=== PATIENT | female | born 1960 | race Caucasian/White ===

== ENCOUNTER → 2019-08-06 | Outpatient (CLI) | payer BC ==
[~2019-08-06] MED LIST: ALBU90OI INH; CETI5 PO; DIPH25 PO; FLUSAL115; VERA240ER PO
== END | disposition home or self-care (01) ==
LOC: LAB 18:09 → LAB SHORT 18:09
DX: R10.32 Left lower quadrant pain (principal)
CPT/HCPCS: 87086

== ENCOUNTER → 2022-05-25 | Outpatient (CLI) | payer SELFPAY | LOC: LAB SHORT 10:50 → LAB 10:50 → EDSTATUS 05-25 10:50 → LAB FUT 05-25 10:50 | DX: R30.0 Dysuria (principal) | CPT/HCPCS: 87077; 87086; 87186 ==

== ENCOUNTER → 2024-09-11 | Outpatient (CLI) | payer OTHER ==
[2024-09-17 08:54] LABS: HPV HIGH RISK BY TMA Not Detected; HPV SOURCE Cervical
== END ==
LOC: LAB SHORT 09:30 → LAB 09:30
PROVIDERS: Nurse Practitioner Family
DX: Z12.4 Encounter for screening for malignant neoplasm of cervix (principal)
CPT/HCPCS: 87624; G0123

== ENCOUNTER → 2024-09-28 | Outpatient (CLI) | payer OTHER ==
[2024-09-28 14:49] LABS: Bacterial Vaginosis PCR Negative (NEGATIVE); Candida Group, PCR NOT DETECTED (NOT DETECT); Candida glabrata-krusei, PCR NOT DETECTED (NOT DETECT)
[2024-09-28 15:21] LABS: Chlamydia Trachomatis Vaginal NOT DETECTED (NOT DETECT); Neisseria Gonorrhoea Vaginal NOT DETECTED (NOT DETECT)
== END ==
LOC: LAB 12:22 → LAB SHORT 12:22
PROVIDERS: Nurse Practitioner Family
DX: N73.9 Female pelvic inflammatory disease, unspecified (principal)
CPT/HCPCS: 81515; 87491; 87591